=== PATIENT | female | born 1985 | race Hispanic/Latino ===

== ENCOUNTER 2021-02-19 04:47 | Emergency (ER) | payer OTHER ==
--- OUTSIDE RECORDS SUMMARY | 2021-02-19 04:49 | XMS REPORT | Continuity of Care Document ---
:1985 Author Organization [facility] t Address [address] [place] [address] Dr. Whyte. [address] [place] [address] Care Team Providers Name Role Phone Joseph PULIDO Attending Clinician Problems This patient has no known problems. Allergies, Adverse Reactions, Alerts This patient has no known allergies or adverse reactions. Medications This patient has no known medications. Procedures This patient has no known procedures. Encounters Start End Encounter Admission Attending Care Care Encounter Source Date/Time Date/Time Type Type Clinicians Facility Department ID 2019-09-21 2019-09-21 Office ZA uRiz [id number] 14:42:43 16:59:41 Visit Gustavo Sesay [id number] Jabari [id number] Mane [id number] nal 044 Building Results This patient has no known results.
[2021-02-19 05:41] LABS: Urine Blood Negative (Negative); Urine Glucose Negative (Negative); Urine Protein Negative (Negative)
[2021-02-19 05:48] LABS: Absolute Lymphocytes (CBC) 2.2 K/uL (0.7-4.9); Basophils % 0.5 % (0-1.3); Hematocrit 43.5 % (36.0-45.0); Lymphocytes % 26.5 % (15.3-44.8); MPV 9.6 fL (7.6-11.3); RBC Red Blood Cell Count 4.79 M/uL (3.86-4.86)
[2021-02-19 06:06] LABS: Protime INR 0.92
[2021-02-19] MEDS ORDERED: ONDANSETRON 4 MG/2 ML VIAL ONE (06:08)
[2021-02-19] MEDS ORDERED: MORPHINE 2 MG/ML SYR ONE (06:08)
[2021-02-19 06:18] LABS: ALT/SGPT 61 U/L (12-78); Albumin 4.2 g/dL (3.4-5.0); Alkaline Phosphatase 72 U/L (45-117); BUN Blood Urea Nitrogen 7 mg/dL (7-18); Bicarbonate 25 mmol/L (21-32); Bilirubin Direct < 0.1 mg/dL (0-0.2); Bilirubin Total 0.2 mg/dL (0.2-1.0); Glucose Level 114 mg/dL (74-106); NT PRO-BNP 41 pg/mL (<125); Protein, Total 8.5 g/dL (6.4-8.2); Sodium Level 139 mmol/L (136-145); Troponin (Emerg Dept Use Only) < 0.02 ng/mL (0.0-0.045)
[2021-02-19 06:20] LABS: AST/SGOT 33 U/L (15-37); Magnesium 1.8 mg/dL (1.8-2.4); Potassium 4.1 mmol/L (3.5-5.1)
--- NOTE | 2021-02-19 08:27 | RAD REPORT ---
EXAM DESCRIPTION: CT - Chest For Pe Angio - 02/19/2021 7:11 am CLINICAL HISTORY: Chest pain. Chest pain;SOB COMPARISON: No comparisons TECHNIQUE: CT angiogram of the pulmonary arteries was performed with MIP. All CT scans are performed using dose optimization technique as appropriate and may include automated exposure control or mA/KV adjustment according to patient size. FINDINGS: No evidence of pulmonary thromboembolism. No acute aortic finding demonstrated. Aberrant right subclavian artery is noted, normal variant. The lungs are clear. No significant pericardial or pleural fluid. No concerning bony finding. IMPRESSION: No evidence of pulmonary thromboembolism. No acute lung findings.
--- NOTE | 2021-02-19 08:45 | EDPHYS ---
Physician Documentation [facility] Name: Michelle Hollingsworth Age: 35 yrs Sex: Female : 1985 Arrival Date: 02/19/2021 Time: 04:50 Bed 17 Private MD: ED Physician Lee Moss HPI: 02/19 05:05 This 35 yrs old Female presents to ER via Ambulatory with complaints of Chest mh7 Pain - + COVID. 05:05 The patient or guardian reports chest pain that is located primarily in the substernal mh7 area. The pain does not radiate. Associated signs and symptoms: Pertinent positives: cough, shortness of breath, With deep breaths, Pertinent negatives: abdominal pain, diaphoresis, dizziness, headache, lower extremity pain, lower extremity swelling, lightheadedness, nausea, near syncope, palpitations, recent travel, syncope, vomiting. 05:05 The chest pain is described as sharp. Duration: The patient or guardian reports mh7 multiple episodes, that are intermittent, that wax and wane. Modifying factors: The symptoms are alleviated by nothing. the symptoms are aggravated by nothing. 05:05 Severity of pain: At its worst the pain was moderate 2 day(s) ago, in the emergency mh7 department the pain has improved moderately. 05:05 Patient states that symptoms started 6 days ago. She tested positive for Covid 4 days mh7 ago.. 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 - Social history:: Smoking status: Patient denies any tobacco usage or history of. ROS: 05:05 Constitutional: Negative for fever, chills, and weight loss, Eyes: Negative for injury, mh7 pain, redness, and discharge, ENT: Negative for injury, pain, and discharge, Neck: Negative for injury, pain, and swelling, Abdomen/GI: Negative for abdominal pain, nausea, vomiting, diarrhea, and constipation, Back: Negative for injury and pain, : Negative for injury, bleeding, discharge, and swelling, MS/Extremity: Negative for injury and deformity, Skin: Negative for injury, rash, and discoloration, Neuro: Negative for headache, weakness, numbness, tingling, and seizure, Psych: Negative for depression, anxiety, suicide ideation, homicidal ideation, and hallucinations, Allergy/Immunology: Negative for hives, rash, and allergies, Endocrine: Negative for neck swelling, polydipsia, polyuria, polyphagia, and marked weight changes, Hematologic/Lymphatic: Negative for swollen nodes, abnormal bleeding, and unusual bruising. Exam: 05:05 Constitutional: This is a well developed, well nourished patient who is awake, alert, mh7 and in no acute distress. Head/Face: Normocephalic, atraumatic. Eyes: Pupils equal round and reactive to light, extra-ocular motions intact. Lids and lashes normal. Conjunctiva and sclera are non-icteric and not injected. Cornea within normal limits. Periorbital areas with no swelling, redness, or edema. Neck: Trachea midline, no thyromegaly or masses palpated, and no cervical lymphadenopathy. Supple, full range of motion without nuchal rigidity, or vertebral point tenderness. No Meningismus. Chest/axilla: Normal chest wall appearance and motion. Nontender with no deformity. No lesions are appreciated. Cardiovascular: Regular rate and rhythm with a normal S1 and S2. No gallops, murmurs, or rubs. Normal PMI, no JVD. No pulse deficits. Respiratory: Lungs have equal breath sounds bilaterally, clear to auscultation and percussion. No rales, rhonchi or wheezes noted. No increased work of breathing, no retractions or nasal flaring. Abdomen/GI: Soft, non-tender, with normal bowel sounds. No distension or tympany. No guarding or rebound. No evidence of tenderness throughout. Back: No spinal tenderness. No costovertebral tenderness. Full range of motion. Skin: Warm, dry with normal turgor. Normal color with no rashes, no lesions, and no evidence of cellulitis. MS/ Extremity: Pulses equal, no cyanosis. Neurovascular intact. Full, normal range of motion. Neuro: Awake and alert, GCS 15, oriented to person, place, time, and situation. Cranial nerves II-XII grossly intact. Motor strength 5/5 in all extremities. Sensory grossly intact. Cerebellar exam normal. Normal gait. Vital Signs: 04:57 BP 173 / 116; Pulse 73; Resp 16; Temp 98.3; Pulse Ox 98% ; Weight 69.4 kg; Height 5 ft. em 3 in. (160.02 cm); 05:11 BP 149 / 97; Pulse 68; Resp 18; Pulse Ox 98% on R/A; ak2 07:29 BP 122 / 89; Pulse 63; Resp 18; Pulse Ox 97% ; ll1 09:23 BP 137 / 92; Pulse 77; Resp 17; Pulse Ox 99% on R/A; ll1 04:57 Body Mass Index 27.10 (69.40 kg, 160.02 cm) em MDM: 07:22 Patient medically screened. jr8 08:43 Data reviewed: vital signs, nurses notes, lab test result(s), EKG, radiologic studies, [facility] CT scan, plain films. Data interpreted: Pulse oximetry: on room air is 97 %. Interpretation: normal. Counseling: I had a detailed discussion with the patient and/or guardian regarding: the historical points, exam findings, and any diagnostic results supporting the discharge/admit diagnosis, lab results, radiology results, the need for outpatient follow up, a family practitioner, to return to the emergency department if symptoms worsen or persist or if there are any questions or concerns that arise at home. ED course: Patient is remained hemodynamically stable while in the emergency room. Labs unremarkable and no CT chest findings of pulmonary embolism. Discussed this with the patient and recommended continuation of vitamins per Covid protocol at home. No evidence-based reason for steroids at this time or antibiotics. Recommended to continue to watch her respiratory status and if she has a pulse oximetry monitor at home to utilize that as well. If she were to become worse to come back immediately for further evaluation. Otherwise he is to follow-up with primary care physician. Patient understood plan and is good with this.. 02/19 05:25 Order name: Basic Metabolic Panel [facility] 02/19 05:25 Order name: CBC with Diff; Complete Time: 05:59 [facility] 02/19 05:25 Order name: LFT's; Complete Time: 06:22 [facility] 02/19 05:25 Order name: Magnesium; Complete Time: 06:22 [facility] 02/19 05:25 Order name: NT PRO-BNP; Complete Time: 06:22 [facility] 02/19 05:25 Order name: Troponin (emerg Dept Use Only); Complete Time: 06:22 mh7 02/19 05:25 Order name: XRAY Chest (1 view); Complete Time: 09:18 mh7 02/19 05:25 Order name: Lactate; Complete Time: 06:19 mh7 02/19 05:25 Order name: Basic Metabolic Panel; Complete Time: 06:22 EDMS 02/19 05:26 Order name: D-Dimer; Complete Time: 06:19 mh7 02/19 05:40 Order name: Urine Dipstick-Ancillary; Complete Time: 05:59 EDMS 02/19 05:42 Order name: Urine --Ancillary (enter results); Complete Time: 09:18 tt3 02/19 06:05 Order name: Protime (+INR); Complete Time: 06:19 EDMS 02/19 05:25 Order name: EKG; Complete Time: 05:26 mh7 02/19 05:25 Order name: Cardiac monitoring; Complete Time: 07:30 mh7 02/19 05:25 Order name: EKG - Nurse/Tech; Complete Time: 07:37 mh7 02/19 05:25 Order name: IV Saline Lock; Complete Time: 07:30 mh7 02/19 05:25 Order name: Labs collected and sent; Complete Time: 07:30 mh7 02/19 05:25 Order name: O2 Per Protocol; Complete Time: 07:30 mh7 02/19 05:25 Order name: O2 Sat Monitoring; Complete Time: 07:30 mh7 02/19 05:25 Order name: Urine Dipstick-Ancillary (obtain specimen); Complete Time: 07:30 mh7 02/19 05:25 Order name: Urine Test (obtain specimen); Complete Time: 07:30 mh7 02/19 06:36 Order name: CT Chest For PE Angio; Complete Time: 08:42 mh7 Administered Medications: 05:31 Drug: NS 0.9% 1000 ml Route: IV; Rate: 1000 ml; Site: right antecubital; ak2 09:24 Follow up: Response: No adverse reaction; RASS: Alert and Calm (0); IV Status: ll1 Completed infusion; IV Intake: 1000ml 05:49 Drug: morphine 2 mg Route: IVP; Site: right antecubital; ak2 07:30 Follow up: Response: No adverse reaction; RASS: Alert and Calm (0) ll1 05:49 Drug: Zofran (Ondansetron) 4 mg Route: IVP; Site: right antecubital; ak2 07:30 Follow up: Response: No adverse reaction; RASS: Alert and Calm (0) ll1 Disposition Summary: 02/19/21 08:45 Discharge Ordered Location: Home jr8 Problem: new jr8 Symptoms: have improved jr8 Condition: Stable jr8 Diagnosis - SARS-associated coronavirus as the cause of diseases classified elsewhere jr8 Followup: jr8 - With: Private Physician - When: 1 week - Reason: Recheck today's complaints, Continuance of care, Re-evaluation by your physician Discharge Instructions: - Discharge Summary Sheet jr8 - COVID-19 jr8 Forms: - Medication Reconciliation Form jr8 - Thank You Letter jr8 - Antibiotic Education jr8 - Work release form bd - Prescription Opioid Use jr8 Addendum: 02/21/2021 02:56 Co-signature as Attending Physician, Lee Moss MD. [facility] Signatures: Dispatcher [employer] EDKota Whiting, RN RN Eduardo Hou PA PA jr8 Lee Moss MD MD [facility] Prashant Lora [facility] Christen Mas RN ll1 Corrections: (The following items were deleted from the chart) 02/19 06:14 05:25 PROTIME (+INR)+COAG.LAB.BRZ ordered. EDCT EDMS
--- NOTE | 2021-02-19 08:45 | ER ---
Nurse's Notes [facility] Name: Michelle Hollingsworth Age: 35 yrs Sex: Female : 1985 Arrival Date: 02/19/2021 Time: 04:50 Bed 17 Private MD: Diagnosis: SARS-associated coronavirus as the cause of diseases classified elsewhere Presentation: 02/19 04:57 Chief complaint: Patient states: Diagnosed Wednesday with covid at [facility], reports Wednesday em she started getting short of breath and started having chest pain. Coronavirus screen: Client presents with at least one sign or symptom that may indicate coronavirus-19. Client reports previous positive COVID test result. Ebola Screen: No symptoms or risks identified at this time. Initial Sepsis Screen: Does the patient meet any 2 criteria? No. Patient's initial sepsis screen is negative. Does the patient have a suspected source of infection? No. Patient's initial sepsis screen is negative. Risk Assessment: Do you want to hurt yourself or someone else? Patient reports no desire to harm self or others. Onset of symptoms was February 19, 2021. 04:57 Method Of Arrival: Ambulatory em 04:57 Acuity: [place] 3 em Triage Assessment: 05:01 General: Appears uncomfortable, Behavior is appropriate for age. Pain: Complains of em pain in chest. Cardiovascular: Patient's skin is warm and dry. 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 - Social history:: Smoking status: Patient denies any tobacco usage or history of. Screenin:00 Abuse screen: Denies threats or abuse. Nutritional screening: No deficits noted. em Tuberculosis screening: No symptoms or risk factors identified. Fall Risk None identified. Assessment: 05:10 General: Appears in no apparent distress. Behavior is calm, cooperative. Pain: Pain ak2 does not radiate. Pain began 2-3 days ago. Neuro: No deficits noted. Cardiovascular: No deficits noted. 07:00 Reassessment: No changes from previously documented assessment. Patient and/or family ll1 updated on plan of care and expected duration. Pain level reassessed. Patient is alert, oriented x 3, equal unlabored respirations, skin warm/dry/pink. 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 08:00 Reassessment: No changes from previously documented assessment. Patient and/or family ll1 updated on plan of care and expected duration. Pain level reassessed. Patient is alert, oriented x 3, equal unlabored respirations, skin warm/dry/pink. 09:00 Reassessment: No changes from previously documented assessment. Patient and/or family ll1 updated on plan of care and expected duration. Pain level reassessed. Patient is alert, oriented x 3, equal unlabored respirations, skin warm/dry/pink. Vital Signs: 04:57 BP 173 / 116; Pulse 73; Resp 16; Temp 98.3; Pulse Ox 98% ; Weight 69.4 kg; Height 5 ft. em 3 in. (160.02 cm); 05:11 BP 149 / 97; Pulse 68; Resp 18; Pulse Ox 98% on R/A; ak2 07:29 BP 122 / 89; Pulse 63; Resp 18; Pulse Ox 97% ; ll1 09:23 BP 137 / 92; Pulse 77; Resp 17; Pulse Ox 99% on R/A; ll1 04:57 Body Mass Index 27.10 (69.40 kg, 160.02 cm) em ED Course: 04:50 Patient arrived in ED. 05:00 Triage completed. em 05:07 Lee Moss MD is Attending Physician. 7 05:10 Arm band placed on right wrist. EKG completed in triage. Results shown to MD. ak2 05:11 Patient has correct armband on for positive identification. engine monitor on. Pulse ak2 ox on. NIBP on. 05:11 No provider procedures requiring assistance completed. Patient maintains SpO2 ak2 saturation greater than 95% on room air. 05:48 XRAY Chest (1 view) In Process Unspecified. EDMS 07:11 CT Chest For PE Angio In Process Unspecified. EDMS 07:22 Eduardo Garnett PA is PHCP. jr8 07:28 Christen Mas, RN is Primary Nurse. ll1 09:23 IV discontinued, intact, bleeding controlled, No redness/swelling at site. Pressure ll1 dressing applied. Administered Medications: 05:31 Drug: NS 0.9% 1000 ml Route: IV; Rate: 1000 ml; Site: right antecubital; ak2 09:24 Follow up: Response: No adverse reaction; RASS: Alert and Calm (0); IV Status: ll1 Completed infusion; IV Intake: 1000ml 05:49 Drug: morphine 2 mg Route: IVP; Site: right antecubital; ak2 07:30 Follow up: Response: No adverse reaction; RASS: Alert and Calm (0) 1 05:49 Drug: Zofran (Ondansetron) 4 mg Route: IVP; Site: right antecubital; ak2 07:30 Follow up: Response: No adverse reaction; RASS: Alert and Calm (0) [facility] Intake: 09:24 IV: 1000ml; Total: 1000ml. 1 Outcome: 08:45 Discharge ordered by . silvestre 09:23 Discharged to home ambulatory. [facility] 09:23 Condition: stable 09:23 Discharge instructions given to patient, Instructed on discharge instructions, follow up and referral plans. Demonstrated understanding of instructions, follow-up care. 09:24 Patient left the ED. 1 Signatures: Dispatcher [employer] EDKota Whiting RN RN Eduardo Hou PA PA jr8 Christen Mas RN RN 1 Lee Moss MD MD Prashant Blake ma2 Shayy Garces
--- NOTE | 2021-02-19 09:11 | RAD REPORT ---
EXAM DESCRIPTION: RAD - Chest Single View - 02/19/2021 5:48 am CLINICAL HISTORY: Cough;Chest pain Chest pain. COMPARISON: CHEST PA AND LAT 2 VIEW dated 02/28/2015; CHEST PA AND LAT 2 VIEW dated 03/09/2007 FINDINGS: Portable technique limits examination quality. Interstitial markings are mildly prominent suggesting viral pneumonitis or bronchitis. The heart is n ormal in size. No displaced fractures.
[2021-02-19 09:31] VITALS: TEMP 98.3
[2021-02-19 09:38] VITALS: BP 137/92; O2SAT 99
== END 2021-02-19 09:24 | disposition home or self-care (01) ==
LOC: ER 04:47
DX: U07.1 COVID-19 (principal)
CPT/HCPCS: 96361; 93005; 85025; 80048; 36415; 83735; 81025; 85610; 85379; 80076; 83605; 81003; 84484; 83880; 71275; 71045; 96375; 96374; 99285; Q9967; J2270; J2405

== ENCOUNTER 2021-07-29 07:17 | Emergency (ER) | payer OTHER ==
--- OUTSIDE RECORDS SUMMARY | 2021-07-29 07:20 | XMS REPORT | Continuity of Care Document ---
:1985 Author Organization [facility] t Address 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, disorder, unspecifie unspecifie d whether d whether recurrent recurrent Anxiety Anxiety Disease Active 2020-0 Univers 3-05 ity of 00:00: [address] [place] Elevated Elevated Disease Active 2020-0 Unive rs BP without BP without 3-05 it [place] of diagnosis [place] hypert[place] hypertens[place] on on Encounter Encounter Disease Active 2020-0 Uni vers for for 3-05 ity of medical medical 00:00: [place] examinatio examinatio 00 Me dical n to n to [place] establish establish care care Weight Weight Disease Active 2020-0 Univers gain gain 3-05 ity of 00:00: [address] [place] Allergies, Adverse Reactions, Alerts Allergy Allergy Status Severity Reaction(s) Onset Inactive Treating Comm ents Source Name Type Date Date Clinician NO KNOWN Drug Active Univers ALLERGIE Class [facility] [place] [facility] Social History Social Habit Start Date Stop Date Quantity Comments Source Sex Assigned At Uni [facility] Smoking Status Start Date Stop Date Source Unknown if ever smoked [facility] Medications Ordered Filled Start Stop Current Ordering Indication Dosage Frequency Signature Comments Components Source Medication Medication Date Date Medication? Clinician (SIG) Name Name Ely 2020-0 Yes [id number] I10 - [facility] 09-20 Dispense ity o f Supply Kit 00:00: blood [place] 00 pressure Medical cuff (any [place] brand), take BP at home BID Miscellaneo 2020-0 Yes [id number] I10 - [facility] 09-20 Dispense ity o f Supply Kit 00:00: blood [place] 00 pressure Medical cuff (any [place] brand), take BP at home BID Vital Signs Vital Name Observation Time Observation Value Comments Source Systolic blood 2019-09-21 20:56:00 141 mm[Hg] Univer sity of pressure [facility] Diastolic blood 2019-09-21 20:56:00 91 mm[Hg] Unive rsity of pressure [facility] Heart rate 2019-09-21 20:56:00 86 /min Universi ty [facility] Body temperature 2019-09-21 20:56:00 36.67 [facility] 2019-09-21 20:56:00 18 /min [facility] Body weight 2019-09-21 20:56:00 72.394 kg Universi [facility] Oxygen saturation in 2019-09-21 20:56:00 100 /min University of Arterial blood by [facility] Pulse oximetry [place] Systolic blood 2019-09-21 20:56:00 141 mm[Hg] Univer sity of pressure [facility] Diastolic blood 2019-09-21 20:56:00 91 mm[Hg] Unive rsity of pressure [facility] Heart rate 2019-09-21 20:56:00 86 /min Universi ty [facility] Body temperature 2019-09-21 20:56:00 36.67 [facility] rate 2019-09-21 20:56:00 18 /min [facility] Body weight 2019-09-21 20:56:00 72.394 kg Universi ty [facility] Oxygen saturation in 2019-09-21 20:56:00 100 /min University of Arterial blood by [facility] Pulse oximetry Branch Procedures Procedure Date / Time Performed Performing Clinician Sour e ASSIGNMENT OF BENEFITS 2019-09-21 20:39:07 Doctor Nadja, [facility] Encounters Start End Encounter Admission Attending Care Care Encounter Source Date/Time Date/Time Type Type Clinicians Facility Department ID 2019-09-22 2019-09-22 [id number] Univers 15:20:00 15:20:00 MELISSA [id number] ity [facility] 2019-09-21 2019-09-21 Office [facility] [id number] Univers 14:42:43 16:59:41 Visit Gustavo Sesay [id number] i [id number] [phone] Ma dical [address] 2019-09-21 2019-09-21 Office [facility] [id number] 14:42:43 16:59:41 Visit Gustavo Sesay [id number] [place] [id number] Professio [id number] [address] 2019-09-21 2019-09-21 [facility] [id number] Univers 14:40:00 14:40:00 GUSTAVO ity [facility] 2019-09-21 2019-09-21 Orders Doctor ROSA [id number] Univers 00:00:00 00:00:00 Only Unassigned, JOSEP [id number] [facility] [id number] [place] as [phone] [facility] 009 Branch Results This patient has no known results.
[2021-07-29] MEDS ORDERED: KETOROLAC 30 MG/ML INJ ONE (08:30)
[2021-07-29] MEDS ORDERED: DIPHENHYDRAMINE 50 MG/ML VIAL ONE (08:30)
[2021-07-29] MEDS ORDERED: METOCLOPRAMIDE 10 MG/2mL INJ ONE (08:30)
[2021-07-29 09:10] LABS: Absolute Lymphocytes (CBC) 3.1 K/uL (0.7-4.9); Hematocrit 41.3 % (36.0-45.0); Lymphocytes % 33.1 % (15.3-44.8); MPV 8.4 fL (7.6-11.3); RBC Red Blood Cell Count 4.51 M/uL (3.86-4.86)
[2021-07-29 09:15] LABS: Protime INR 0.89
[2021-07-29 09:28] LABS: BUN Blood Urea Nitrogen 11 mg/dL (7-18); Bicarbonate 29 mmol/L (21-32); Glucose Level 91 mg/dL (74-106); NT PRO-BNP 29 pg/mL (<125); Potassium 4.3 mmol/L (3.5-5.1); Sodium Level 140 mmol/L (136-145)
--- NOTE | 2021-07-29 09:30 | RAD REPORT ---
EXAM DESCRIPTION: RAD - Chest Single View - 07/29/2021 9:05 am CLINICAL HISTORY: CHEST PAIN Chest pain. COMPARISON: Chest Single View dated 02/19/2021; CHEST PA AND LAT 2 VIEW dated 02/28/2015; CHEST PA AND LAT 2 VIEW dated 03/09/2007 FINDINGS: Portable technique limits examination quality. The lungs are grossly clear. The heart is normal in size. No displaced fractures. IMPRESSION: No acute intrathoracic process suspected.
--- NOTE | 2021-07-29 10:17 | EDPHYS ---
Physician Documentation [facility] Name: Michelle Hollingsworth Age: 35 yrs Sex: Female : 1985 Arrival Date: 07/29/2021 Time: 07:20 Bed Treatment Private MD: ED Physician Abiodun Tobar HPI: 07/29 10:09 This 35 yrs old Female presents to ER via Ambulatory with complaints of Chest jr8 Pain, Headache. 10:09 This is a 35-year-old female patient that presented to the emergency room with jr8 complaints of right-sided chest pain, shortness of breath, headache. Patient stated that she normally has chest pain with shortness of breath on and off. Has been seen by physicians in the past for this without any official diagnosis. Patient stated that the pain is worse with palpation of the chest wall. Denies any recent or remote trauma. Patient stated that the new symptom that she is having now is headache that is unrelieved with [id number] medications. Denies any neck stiffness, fevers or any other symptoms at this time.. Historical: - Allergies: 07:41 No Known Allergies; ll1 - PMHx: 07:41 None; ll1 - PSHx: 07:41 None; ll1 - Immunization history:: Client reports having NOT received the Covid vaccine. Flu vaccine status is unknown. - Social history:: Smoking status: Patient denies any tobacco usage or history of. ROS: 10:09 Eyes: Negative for injury, pain, redness, and discharge, ENT: Negative for injury, jr8 pain, and discharge, Neck: Negative for injury, pain, and swelling, Abdomen/GI: Negative for abdominal pain, nausea, vomiting, diarrhea, and constipation, Back: Negative for injury and pain, MS/Extremity: Negative for injury and deformity, Skin: Negative for injury, rash, and discoloration. 10:09 Cardiovascular: Positive for chest pain, Negative for edema, orthopnea, palpitations, paroxysmal nocturnal dyspnea. 10:09 Respiratory: Positive for shortness of breath. 10:09 Neuro: Positive for headache. Exam: 10:09 Constitutional: This is a well developed, well nourished patient who is awake, alert, jr8 and in no acute distress. Cardiovascular: Regular rate and rhythm with a normal S1 and S2. No gallops, murmurs, or rubs. Normal PMI, no JVD. No pulse deficits. Respiratory: Lungs have equal breath sounds bilaterally, clear to auscultation and percussion. No rales, rhonchi or wheezes noted. No increased work of breathing, no retractions or nasal flaring. Abdomen/GI: Soft, non-tender, with normal bowel sounds. No distension or tympany. No guarding or rebound. No evidence of tenderness throughout. Back: No spinal tenderness. No costovertebral tenderness. Full range of motion. Skin: Warm, dry with normal turgor. Normal color with no rashes, no lesions, and no evidence of cellulitis. MS/ Extremity: Pulses equal, no cyanosis. Neurovascular intact. Full, normal range of motion. Neuro: Awake and alert, GCS 15, oriented to person, place, time, and situation. Cranial nerves II-XII grossly intact. Motor strength 5/5 in all extremities. Sensory grossly intact. Cerebellar exam normal. Normal gait. 10:09 Chest/axilla: Inspection: normal, Palpation: tenderness, that is moderate, of the anterior aspect of right upper chest, that totally reproduces the patient's complaints. Vital Signs: 07:40 BP 143 / 99; Pulse 69; Resp 17; Temp 97.6; Pulse Ox 100% ; Weight 72.57 kg; Height 5 ll1 ft. 3 in. (160.02 cm); Pain 9/10; 09:24 BP 150 / 108; Pulse 80; Resp 17; Pulse Ox 100% on R/A; ll3 10:31 BP 139 / 99; Pulse 80; Resp 13; Pulse Ox 100% ; ll3 07:40 Body Mass Index 28.34 (72.57 kg, 160.02 cm) ll1 MDM: 08:03 Patient medically screened. jr8 10:09 Data reviewed: vital signs, nurses notes, lab test result(s), EKG, radiologic studies, jr8 plain films. Data interpreted: Pulse oximetry: on room air is 100 %. Interpretation: normal. Counseling: I had a detailed discussion with the patient and/or guardian regarding: the historical points, exam findings, and any diagnostic results supporting the discharge/admit diagnosis, lab results, radiology results, the need for outpatient follow up, a family practitioner, to return to the emergency department if symptoms worsen or persist or if there are any questions or concerns that arise at home. Response to treatment: the patient's symptoms have markedly improved after treatment. 07/29 08:17 Order name: Basic Metabolic Panel; Complete Time: 07/29 08:17 Order name: CBC with Diff; Complete Time: 07/29 08:17 Order name: NT PRO-BNP; Complete Time: :07/29 08:17 Order name: PT-INR; Complete Time: 07/29 09:07 Order name: Troponin High Sensitivity; Complete Time: : EDMS 07/29 08:17 Order name: XRAY Chest (1 view); Complete Time: :07/29 08:17 Order name: EKG; Complete Time: :07/29 08:17 Order name: Cardiac monitoring; Complete Time: 07/29 08:17 Order name: EKG - Nurse/Tech; Complete Time: 07/29 08:17 Order name: IV Saline Lock; Complete Time: 07/29 08:17 Order name: Labs collected and sent; Complete Time: :07/29 08:17 Order name: O2 Per Protocol; Complete Time: 07/29 08:17 Order name: O2 Sat Monitoring; Complete Time: : Administered Medications: 09:05 Drug: Benadryl (diphenhydrAMINE) 25 mg Route: IVP; Site: left antecubital; ll3 10:31 Follow up: Response: No adverse reaction ll3 09:08 Drug: Ketorolac 15 mg Route: IVP; Site: left antecubital; ll3 10:32 Follow up: Response: No adverse reaction ll3 09:10 Drug: Reglan (metoCLOPramide) 10 mg Route: IVP; Site: left antecubital; ll3 10:31 Follow up: Response: No adverse reaction ll3 Disposition: 17:10 Co-signature as Attending Physician, Abiodun Tobar MD I agree with the assessment and rn plan of care. Attestation: The patient's history, exam findings, diagnostics, and a summary of any interventions or procedures was reviewed in detail with Eduardo ZHANG. Disposition Summary: 07/29/21 10:16 Discharge Ordered Location: Home jr8 Problem: new jr8 Symptoms: have improved jr8 Condition: Stable jr8 Diagnosis - Costochondritis jr8 - Migraine without aura, not intractable jr8 Followup: jr8 - With: Private Physician - When: 5 - 6 days - Reason: Recheck today's complaints, Continuance of care, Re-evaluation by your physician Discharge Instructions: - Discharge Summary Sheet jr8 - Costochondritis jr8 - Migraine Headache jr8 Forms: - Medication Reconciliation Form jr8 - Thank You Letter jr8 - Antibiotic Education jr8 - Prescription Opioid Use jr8 Prescriptions: - Ibuprofen 800 mg Oral Tablet - take 1 tablet by ORAL route every 12 hours As needed take with food; 20 tablet; jr8 Refills: 0, Product Selection Permitted Signatures: Dispatcher [employer] EDMS Abiodun Tobar MD MD rn Roszak, Josh, PA PA jr8 Christen Mas RN RN ll1 Lesley Lazar RN RN ll3 Corrections: (The following items were deleted from the chart) 09:06 08:18 TROPONIN (EMERG DEPT USE ONLY)+C.LAB.BRZ ordered. EDMS EDMS
--- NOTE | 2021-07-29 10:17 | ER ---
Nurse's Notes [facility] Name: Michelle Hollingsworth Age: 35 yrs Sex: Female : 1985 Arrival Date: 07/29/2021 Time: 07:20 Bed Treatment Private MD: Diagnosis: Costochondritis;Migraine without aura, not intractable Presentation: 07/29 07:40 Chief complaint: Patient states: R chest pain with SOB for 10 days. Migraine ARAGON with ll1 nausea for 10 days. No fever. + weak, fatigue. Eating/drinking well. Coronavirus screen: Vaccine status: Patient reports being unvaccinated. Client denies travel out of the [place] in the last 14 days. fatigue, headache, nausea, Client presents with at least one sign or symptom that may indicate coronavirus-19. Standard/surgical mask placed on the client. Ebola Screen: Patient denies travel to an Ebola-affected area in the 21 days before illness onset. Initial Sepsis Screen: Does the patient meet any 2 criteria? No. Patient's initial sepsis screen is negative. Does the patient have a suspected source of infection? No. Patient's initial sepsis screen is negative. Risk Assessment: Do you want to hurt yourself or someone else? Patient reports no desire to harm self or others. Onset of symptoms was July 19, 2021. 07:40 Method Of Arrival: Ambulatory ll1 07:40 Acuity: [place]IN[place] 3 ll1 Historical: - Allergies: 07:41 No Known Allergies; ll1 - PMHx: 07:41 None; ll1 - PSHx: 07:41 None; ll1 - Immunization history:: Client reports having NOT received the Covid vaccine. Flu vaccine status is unknown. - Social history:: Smoking status: Patient denies any tobacco usage or history of. Screenin:16 Abuse screen: Denies threats or abuse. Nutritional screening: No deficits noted. ll3 Tuberculosis screening: No symptoms or risk factors identified. Fall Risk None identified. Assessment: 08:16 General: Appears in no apparent distress. uncomfortable, Behavior is calm, cooperative. ll3 Pain: Complains of pain in anterior aspect of right upper chest Pain does not radiate. Pain currently is 7 out of 10 on a pain scale. Pain began Pain has been on and off for the last year. Neuro: Level of Consciousness is awake, alert, obeys commands, Oriented to person, place, time, situation, Speech is normal, Facial symmetry appears normal, Reports headache that is the "worst ever". Cardiovascular: Patient's skin is warm and dry. Chest pain is located in right anterior substernal area. Respiratory: Respiratory effort is even, unlabored, Respiratory pattern is regular, symmetrical, Breath sounds are clear bilaterally. Parent/caregiver reports the patient having shortness of breath since On and off for the last year. Derm: Skin is pink, warm \\T\\ dry. 09:24 Reassessment: Patient appears in no apparent distress at this time. No changes from ll3 previously documented assessment. Patient and/or family updated on plan of care and expected duration. Pain level reassessed. Patient is alert, oriented x 3, equal unlabored respirations, skin warm/dry/pink. 10:30 Reassessment: Patient appears in no apparent distress at this time. No changes from ll3 previously documented assessment. Patient and/or family updated on plan of care and expected duration. Pain level reassessed. Patient is alert, oriented x 3, equal unlabored respirations, skin warm/dry/pink. Vital Signs: 07:40 BP 143 / 99; Pulse 69; Resp 17; Temp 97.6; Pulse Ox 100% ; Weight 72.57 kg; Height 5 ll1 ft. 3 in. (160.02 cm); Pain 9/10; 09:24 BP 150 / 108; Pulse 80; Resp 17; Pulse Ox 100% on R/A; ll3 10:31 BP 139 / 99; Pulse 80; Resp 13; Pulse Ox 100% ; ll3 07:40 Body Mass Index 28.34 (72.57 kg, 160.02 cm) ll1 ED Course: 07:20 Patient arrived in ED. ds1 07:41 Triage completed. ll1 07:42 Arm band placed on Patient placed in an exam room, on a stretcher. ll1 08:03 Eduardo Garnett PA is PHCP. jr8 08:03 Abiodun Tobar MD is Attending Physician. jr8 08:16 Lesley Lazar RN is Primary Nurse. ll3 08:16 Patient has correct armband on for positive identification. Bed in low position. Call ll3 light in reach. Side rails up X 1. 08:16 Patient maintains SpO2 saturation greater than 95% on room air. ll3 09:05 XRAY Chest (1 view) In Process Unspecified. EDMS 10:23 No provider procedures requiring assistance completed. 5 10:24 food cooking machine operator on. Pulse ox on. NIBP on. jh5 10:24 Patient did not have IV access during this emergency room visit. 5 10:24 IV discontinued, intact, bleeding controlled, No redness/swelling at site. Pressure 5 dressing applied. Administered Medications: 09:05 Drug: Benadryl (diphenhydrAMINE) 25 mg Route: IVP; Site: left antecubital; ll3 10:31 Follow up: Response: No adverse reaction ll3 09:08 Drug: Ketorolac 15 mg Route: IVP; Site: left antecubital; ll3 10:32 Follow up: Response: No adverse reaction ll3 09:10 Drug: Reglan (metoCLOPramide) 10 mg Route: IVP; Site: left antecubital; ll3 10:31 Follow up: Response: No adverse reaction 3 Outcome: 10:16 Discharge ordered by . silvestre 10:24 Discharged to home ambulatory. jh5 10:24 Condition: good 10:24 Discharge instructions given to patient, Instructed on discharge instructions, follow up and referral plans. safety practices, Demonstrated understanding of instructions, follow-up care, medications, Prescriptions given X 1. 10:26 Patient left the ED. 5 Signatures: Dispatcher [employer] EDID Jagdish Deann ds1 Eduardo Garnett PA PA 8 Christen Mas RN RN ll1 Jacki Kimball RN RN 5 Lesley Lazar RN RN ll3 Corrections: (The following items were deleted from the chart) 07:50 07:40 Chief complaint: Patient states: R chest pain for 10 days. Migraine ARAGON with ll1 nausea for 10 days. No fever. + weak, fatigue. Eating/drinking well. ll1 07:50 07:40 Acuity: CHAPIN[place]O 4 ll1 ll1
[2021-07-29 10:33] VITALS: TEMP 97.6; O2SAT 100
[2021-07-29 10:34] VITALS: BP 150/108
--- NOTE | 2021-07-30 07:49 | EKG ---
Test Date: 2021-07-29 Test Time: 08:38:19 Foundry Finisher: PERRY MEASUREMENT RESULTS: Intervals: Rate: 63 WI: 142 QRSD: 74 QT: 402 QTc: 411 [place]: P: 49 WI: 142 QRS: 48 T: 53 INTERPRETIVE STATEMENTS: Normal sinus rhythm Normal ECG Compared to ECG 02/19/2021 05:06:53 T-wave abnormality no longer present Electronically Signed On 07-30-21 07:45:50 NUTRITION PROGRAM INSTRUCTOR by Nacho Smiley
== END 2021-07-29 10:26 | disposition home or self-care (01) ==
LOC: ER 07:17
DX: M94.0 Chondrocostal junction syndrome [Tietze] (principal); G43.009 Migraine without aura, not intractable, without status migrainosus
CPT/HCPCS: 93005; 85025; 80048; 36415; 85610; 84484; 83880; 71045; 96375; 96374; 99285; J2765; J1200